=== PATIENT | female | born 1975 | race Two or more races ===

== ENCOUNTER 2022-12-08 09:17 | Inpatient (IN) | payer OTHER ==
[~2022-12-08] VITALS: Ht 162.6 cm; Wt 63.5 kg
[2022-12-08] MEDS ORDERED: VISTARIL25 MG PO (11:40)
[2022-12-08] MEDS ORDERED: ZESTRIL5 MG PO (11:40)
== END 2022-12-13 09:49 | disposition home or self-care (01) | DRG 743 ==
LOC: O/R 12-11 06:00 → OB/GYN 12-11 06:00 → SURG 12-11 10:15 → OB/GYN 12-11 11:25
PROVIDERS: ADMIT Obstetrics & Gynecology Gynecologic Oncology; ATTEND Obstetrics & Gynecology Gynecologic Oncology
PROC: 0UT70ZZ Resection of Bilateral Fallopian Tubes, Open Approach (ICD-10-PCS; 2022-12-11)
PROC: 07BC0ZZ Excision of Pelvis Lymphatic, Open Approach (ICD-10-PCS; 2022-12-11)
PROC: 0UT90ZZ Resection of Uterus, Open Approach (ICD-10-PCS; principal; 2022-12-11 10:15)
DX: N80.03 Adenomyosis of the uterus (principal); N72 Inflammatory disease of cervix uteri; Z20.822 Contact with and (suspected) exposure to COVID-19